=== PATIENT | male | born 1955 | race Caucasian/White ===

== ENCOUNTER 2023-05-16 13:08 | Emergency (ER) | payer MEDICARE | END 2023-05-16 14:36 | disposition home or self-care (01) | LOC: JP.ED 13:08 | DX: S51.811A Laceration without foreign body of right forearm, initial encounter (principal); Z88.0 Allergy status to penicillin; W22.8XXA Striking against or struck by other objects, initial encounter | CPT/HCPCS: 12002; 99282 ==